=== PATIENT | female | born 1990 | race Caucasian/White ===

== ENCOUNTER 2017-08-12 09:07 | Emergency (ER) | payer MEDICAID ==
[~2017-08-12] VITALS: Ht 160 cm; Wt 89.8 kg
[~2017-08-12 09:07] MED LIST: FIORIC PO; PROT40TA PO; XANA0.5T PO; ZOFR8TAB4 SL
[2017-08-12 09:10] VITALS: BP 126/78; PULSE 108; RESP 16; TEMP 98.9; O2SAT 100
[2017-08-12] MEDS ORDERED: DESV25TA PO (09:23)
[2017-08-12] MEDS ORDERED: CYCL5TAB PO (09:23)
[2017-08-12] MEDS ORDERED: GABA100C4 PO (09:23)
[2017-08-12 09:35] LABS: BILIRUBIN, URINE NEG (NEG); BLOOD, URINE NEG (NEG); GLUCOSE,URINE NEG (NEG); KETONE, URINE NEG (NEG); NITRITE,URINE NEG (NEG); URINE LEUKOCYTE ESTERASE NEG (NEG)
[2017-08-12 09:40] LABS: RBC, URINE 0-3 /hpf (0-3); SQUAMOUS EPITHELIAL CELL URINE 0-5 /hpf (0-5); URINE COLOR YELLOW (YELLW/STRAW); WBC, URINE 0-2 /hpf (0-5)
[2017-08-12] MEDS ORDERED: KETOROLAC TROMETHAMINE 30 MG/ML (IVP) VIAL IVP ONE (09:45)
[2017-08-12] MEDS ORDERED: SODIUM CHLORIDE 0.9% FLUSH 10 ML FLUSH IV FLUSH PRN (09:45)
--- NOTE | 2017-08-12 09:59 | PD ---
HPI Chief Complaint: Back/ Neck Pain or Injury Time Seen by Provider: 09:36 Travel History International Travel<30 days: No Contact w/Intl Traveler<30days: No Traveled to known affect area: No History of Present Illness HPI 27-year-old female patient presents the emergency department with 2 week history of increasing back pain with radiation into the neck. Patient denies any specific injury. Patient denies shortness of breath. Patient denies pleuritic pain. Patient states pain is worse at night when trying to sleep. Patient currently on Flexeril and Neurontin 100 mg 3 times a day for endometriosis, as well as Pristiq for depression. Patient states she does smoke. Patient denies significant cough or wheezing. Patient denies any specific injury. Patient does relate that she is a single mother of a 9-year- old son with autism and Tourette's syndrome. She states that she has very little support other than her son's counselors. She states she does go to the doctor but has different doctors every time she has Medicaid. Patient states she is not suicidal or homicidal at this time. Patient admits to feeling overwhelmed with the holiday season at this time. Patient denies nausea, vomiting, or diarrhea but states she does have a gastric ulcer. Pain in the back is currently about an 8 out of 10. Patient also concerned about an osteosarcoma and the right femur. She states "I'm just afraid of something being wrong". She is allergic to doxycycline. PFSH Past Medical History Cancer: No Cardiovascular Problems: Yes (LOW BP) Diminished Hearing: No Endocrine: No Gastrointestinal Disorders: Yes (HX GERD) GERD: Yes Genitourinary: No Headaches: Yes Hepatitis: No Hiatal Hernia: No Hypertension: No Immune Disorder: No Medical other: No Musculoskeletal: Yes (RIGHT FEMUR OSTEOCONDROMA) Neurologic: No Psychiatric: No Respiratory: No Tetanus Vaccination: Unknown ?: Unknown : 1 Para: 1 Past Surgical History AICD: No Body Medical Devices: NONE Gynecologic Surgery: Yes (ENDOMETRIOSIS ABLASION) Joint Replacement: No Pacemaker: No Other Surgery: No Social History Alcohol Use: No Tobacco Use: Yes Substance Use: No Allergies-Medications (Allergen,Severity, Reaction): Coded Allergies: doxycycline (Unverified Allergy, Mild, Anaphylaxis, 08/12/17) Reported Meds & Prescriptions Reported Meds & Active Scripts Active Flexeril (Cyclobenzaprine HCl) 10 Mg Tab 10 Mg PO TID Meloxicam 15 Mg Tab 15 Mg PO DAILY Gabapentin 300 Mg Cap 300 Mg PO TID Reported Flexeril (Cyclobenzaprine HCl) 5 Mg Tab 5 Mg PO PRN Pristiq 24 HR (Desvenlafaxine ER 24 HR) 25 Mg Tab 25 Mg PO DAILY Gabapentin 100 Mg Cap 100 Mg PO TID Review of Systems Except as stated in HPI: all other systems reviewed are Neg General / Constitutional: No: Fever Eyes: No: Visual changes HENT: No: Headaches Cardiovascular: No: Chest Pain or Discomfort Respiratory: No: Cough, Shortness of Breath, Wheezing, Sneezing, Night Sweats, Pleuritic Pain Gastrointestinal: No: Nausea, Vomiting, Diarrhea, Abdominal Pain Genitourinary: No: Urgency, Frequency, Dysuria, Pelvic Pain, Flank Pain, Discharge, Vaginal Bleeding Musculoskeletal: Positive: Myalgias, Pain (see history of present illness), No : Arthralgias, Limited ROM Skin: No Rash Neurologic: No: Weakness Psychiatric: No: Depression Endocrine: No: Polydipsia Hematologic/Lymphatic: No: Easy Bruising Physical Exam Narrative GENERAL: Patient appears anxious, but otherwise in no acute distress. SKIN: Warm and dry. Normal color. Normal turgor. No rash. HEAD: Atraumatic. Normocephalic. EYES: Pupils equal and round. No scleral icterus. No injection or drainage. ENT: No nasal bleeding or discharge. Mucous membranes pink and moist. TMs are clear bilaterally. No sinus tenderness. Pharynx is normal. Airway is patent. NECK: Trachea midline. No bony tenderness or step-off. Range of motion is full and nontender. CARDIOVASCULAR: Regular rate and rhythm. RESPIRATORY: No accessory muscle use. Clear to auscultation. Breath sounds equal bilaterally. No recent producible pain with palpation of the thoracic spine or rib cage. GASTROINTESTINAL: Abdomen soft, non-tender, nondistended. Hepatic and splenic margins not palpable. MUSCULOSKELETAL: Extremities without clubbing, cyanosis, or edema. No obvious deformities. Straight leg raise pain is negative bilaterally. No significant findings noted. NEUROLOGICAL: Awake and alert. No obvious cranial nerve deficits. Motor grossly within normal limits. Five out of 5 muscle strength in the arms and legs. Normal speech. PSYCHIATRIC: Appropriate mood and affect; insight and judgment normal. Data Data Last Documented VS Vital Signs Date Time Temp Pulse Resp B/P (MAP) Pulse Ox O2 Delivery O2 Flow Rate FiO2 08/12/17 10:01 16 100 Room Air 08/12/17 09:10 98.9 108 126/78 (94) Orders Orders Urinalysis - C+S If Indicated (08/12/17 09:17) Ed Urine Pregnancytest Poc (08/12/17 09:17) Complete Blood Count With Diff (08/12/17 09:45) Comprehensive Metabolic Panel (08/12/17 09:45) Lipase (08/12/17 09:45) Iv Access Insert/Monitor (08/12/17 09:45) Ecg Monitoring (08/12/17 09:45) Oximetry (08/12/17 09:45) Sodium Chloride 0.9% Flush (Ns Flush) (08/12/17 09:45) Ketorolac Inj (Toradol Inj) (08/12/17 09:45) Chest, Single Ap (08/12/17 09:45) Labs Laboratory Tests Test 08/12/17 09:20 08/12/17 10:00 Urine Collection Type CLEAN CATCH Urine Color YELLOW Urine Turbidity CLEAR Urine pH 6.0 Urine Specific [place] 1.005 Urine Protein NEG mg/dL Urine Glucose (UA) NEG mg/dL Urine Ketones NEG mg/dL Urine Occult Blood NEG Urine Nitrite NEG Urine Bilirubin NEG Urine Leukocyte Esterase NEG Urine RBC 0-3 /hpf Urine WBC 0-2 /hpf Urine Squamous Epithelial Cells 0-5 /hpf Microscopic Urinalysis Comment CULT NOT INDICATED Urine Collection Time 09:20 White Blood Count 8.6 TH/MM3 Red Blood Count 4.98 MIL/MM3 Hemoglobin 11.9 GM/DL Hematocrit 39.4 % Mean Corpuscular Volume 79.2 FL Mean Corpuscular Hemoglobin 23.9 PG Mean Corpuscular Hemoglobin Concent 30.2 % Red Cell Distribution Width 15.5 % Platelet Count 342 TH/MM3 Mean Platelet Volume 8.4 FL Neutrophils (%) (Auto) 68.9 % Lymphocytes (%) (Auto) 21.7 % Monocytes (%) (Auto) 6.8 % Eosinophils (%) (Auto) 2.0 % Basophils (%) (Auto) 0.6 % Neutrophils # (Auto) 5.8 TH/MM3 Lymphocytes # (Auto) 1.9 TH/MM3 Monocytes # (Auto) 0.6 TH/MM3 Eosinophils # (Auto) 0.2 TH/MM3 Basophils # (Auto) 0.1 TH/MM3 CBC Comment DIFF FINAL Differential Comment Blood Urea Nitrogen 7 MG/DL Creatinine 0.60 MG/DL Random Glucose 91 MG/DL Total Protein 7.9 GM/DL Albumin 3.7 GM/DL Calcium Level 9.0 MG/DL Alkaline Phosphatase 103 U/L Aspartate Amino Transf (AST/SGOT) 23 U/L Alanine Aminotransferase (ALT/SGPT) 40 U/L Total Bilirubin 0.2 MG/DL Sodium Level 137 MEQ/L Potassium Level 4.0 MEQ/L Chloride Level 104 MEQ/L Carbon Dioxide Level 24.9 MEQ/L Anion Gap 8 MEQ/L Estimat Glomerular Filtration Rate 122 ML/MIN Lipase 181 U/L MDM Medical Decision Making Medical Screen Exam Complete: Yes Emergency Medical Condition: Yes Differential Diagnosis Subjective muscle pain. Life stressors. Anxiety. Depression. Narrative Course Patient is felt to be medically stable at time of exam. Urine test is negative. Urinalysis is unremarkable. Labs ordered including CBC, CMP, and lipase. Chest x-ray is ordered. IV is started and the patient is given 30 mg Toradol IV. CBC and CMP are both unremarkable. Lipase is normal. Chest x-ray shows no acute abnormality per radiologist. Patient is felt to be medically stable for discharge home. Patient symptoms are felt to be more stress-related than from a physical ailment. Patient is to increase her Neurontin to 300 mg 3 times a day. She is given a prescription for #90. Patient also to use meloxicam 15 mg daily. Patient can use Flexeril 10 mg up to 3 times a day. Recommend close follow-up with local primary care physician and/or mental health counselor. Patient to return if symptoms do not improve or worsen as needed. Diagnosis Primary Impression: Muscle spasm of back Additional Impression: Stress reaction Referrals: [facility] Patient Instructions: Anxiety (ED), General Instructions, Muscle Spasm (ED) Additional Instructions: CBC and CMP are both unremarkable. Lipase is normal. Chest x-ray shows no acute abnormality per radiologist. Patient is felt to be medically stable for discharge home. Patient symptoms are felt to be more stress-related than from a physical ailment. Patient is to increase her Neurontin to 300 mg 3 times a day. She is given a prescription for #90. Patient also to use meloxicam 15 mg daily. Patient can use Flexeril 10 mg up to 3 times a day. Recommend close follow-up with local primary care physician and/or mental health counselor. Patient to return if symptoms do not improve or worsen as needed. Med/Other Pt SpecificInfo: Prescription(s) given Scripts Cyclobenzaprine (Flexeril) 10 Mg Tab 10 MG PO TID for Muscle Spasm, #30 TAB 0 Refills Prov: Roro Cagle MD 08/12/17 Meloxicam (Meloxicam) 15 Mg Tab 15 MG PO DAILY for Arthritis Pain, #30 TAB 0 Refills Prov: Roro Cagle MD 08/12/17 Gabapentin (Gabapentin) 300 Mg Cap 300 MG PO TID, #90 CAP 0 Refills Prov: Roro Cagle MD 08/12/17 Disposition: 01 DISCHARGE HOME Condition: Stable French Maxwell Aug 12, 2017 09:59
[2017-08-12 10:01] VITALS: RESP 16; O2SAT 100
[2017-08-12 10:12] LABS: CHLORIDE 104 MEQ/L (98-107); SODIUM (NA) 137 MEQ/L (136-145)
[2017-08-12 10:14] LABS: AUTOMATED NEUTROPHIL # 5.8 TH/MM3 (1.8-7.7); BASOPHIL # 0.1 TH/MM3 (0-0.2); BASOPHIL % 0.6 % (0.0-2.0); EOSINOPHIL # 0.2 TH/MM3 (0-0.4); HEMATOCRIT 39.4 % (35.0-46.0); HEMOGLOBIN 11.9 GM/DL (11.6-15.3); LYMPH % 21.7 % (9.0-44.0); LYMPHOCYTE # 1.9 TH/MM3 (1.0-4.8); MEAN CELL VOLUME 79.2 FL (80.0-100.0); MEAN CORPUSCULAR HEMOGLOBIN 23.9 PG (27.0-34.0); MEAN CORPUSCULAR HGB CONC 30.2 % (32.0-36.0); MEAN PLATELET VOLUME 8.4 FL (7.0-11.0); MONO % 6.8 % (0.0-8.0); MONOCYTE # 0.6 TH/MM3 (0-0.9); NEUT % 68.9 % (16.0-70.0); PLATELET COUNT 342 TH/MM3 (150-450); RED BLOOD COUNT 4.98 MIL/MM3 (4.00-5.30); RED CELL DISTRIBUTION WIDTH 15.5 % (11.6-17.2); WHITE BLOOD COUNT 8.6 TH/MM3 (4.0-11.0)
[2017-08-12 10:16] LABS: ALBUMIN 3.7 GM/DL (3.4-5.0); BICARBONATE 24.9 MEQ/L (21.0-32.0); BLOOD UREA NITROGEN 7 MG/DL (7-18); GLUCOSE,RANDOM 91 MG/DL (74-106); LIPASE 181 U/L (73-393)
[2017-08-12 10:19] LABS: ALT (GPT) 40 U/L (10-53); AST (GOT) 23 U/L (15-37); GLOMERULAR FILTRATION RATE 122 ML/MIN (>89)
[2017-08-12 10:20] LABS: TOTAL BILIRUBIN ADULT 0.2 MG/DL (0.2-1.0); TOTAL PROTEIN 7.9 GM/DL (6.4-8.2)
[2017-08-12 10:22] LABS: ALKALINE PHOSPHATASE 103 U/L (45-117)
[2017-08-12] MEDS ORDERED: MELO15TA20 PO (10:35)
[2017-08-12] MEDS ORDERED: CYCL10TA PO (10:35)
[2017-08-12] MEDS ORDERED: GABA300C5 PO (10:35)
--- NOTE | 2017-08-12 10:52 | RADRPT ---
EXAM DATE/TIME: 08/12/2017 10:12 [facility] COMPARISON: No previous studies available for comparison. INDICATIONS : Chest/ upper back pain. MEDICAL HISTORY : Gastroesophageal reflux disease. Low blood pressure. Endometriosis. Right femur osteochondroma. SURGICAL HISTORY : Endometriosis abaltion. ENCOUNTER: Initial ACUITY: 2 weeks PAIN SCORE: 3/10 LOCATION: chest FINDINGS: A single view of the chest demonstrates the lungs to be symmetrically aerated without evidence of mas s, infiltrate or effusion. The cardiomediastinal contours are unremarkable. Osseous structures are intact. CONCLUSION: Normal examination. Santos Arellano MD on August 12, 2017 at 10:50 Board Certified Radiologist. This report was verified electronically.
== END 2017-08-12 11:11 | disposition home or self-care (01) ==
LOC: PHED 09:07
DX: M62.830 Muscle spasm of back (principal); F43.9 Reaction to severe stress, unspecified; F32.9 Major depressive disorder, single episode, unspecified; K21.9 Gastro-esophageal reflux disease without esophagitis; D16.21 Benign neoplasm of long bones of right lower limb; N80.9 Endometriosis, unspecified
CPT/HCPCS: 71010; 80053; 81001; 83690; 84703; 85025; 96374; 99284; J1885

== ENCOUNTER 2017-09-21 13:20 | Emergency (ER) | payer MEDICAID ==
[~2017-09-21] VITALS: Ht 160 cm; Wt 87.0 kg
[~2017-09-21 13:20] MED LIST changes: +CYCL10TA PO; +CYCL5TAB PO; +DESV25TA PO; -FIORIC PO; +GABA100C4 PO; +GABA300C5 PO; +MELO15TA20 PO; -PROT40TA PO; -XANA0.5T PO; -ZOFR8TAB4 SL
[2017-09-21 13:23] VITALS: BP 132/89; PULSE 107; RESP 20; TEMP 97.9; O2SAT 97
[2017-09-21] MEDS ORDERED: SODIUM CHLOR 0.9% 1000 ML INJ 1,000 ML IV ONE (16:34)
--- NOTE | 2017-09-21 16:43 | PD ---
HPI Chief Complaint: Related Problem Time Seen by Provider: 16:26 Travel History International Travel<30 days: No Contact w/Intl Traveler<30days: No Traveled to known affect area: No History of Present Illness HPI 27-year-old female presents to the emergency department for evaluation after she states she was diagnosed with a miscarriage on Friday at [facility] in [facility]. She states that she had lab work and ultrasound completed. She states at that time, she was running a fever. She has not had a fever since and is afebrile at this time. She states she feels like something is not right. She reports lower abdominal cramping. She also states she has a migraine headache as well. Patient is a G2, P1. Patient states she was prescribed Augmentin by [facility]. She has a history of migraine headaches. She had a CT scan of the head done in 2014 which was unremarkable. She states the pain is over her left frontal and maxillary sinus and is 5/10. She denies any abnormal vaginal discharge, risk of STDs. No exacerbating or alleviating factors. Moderate severity. PFSH Past Medical History Cancer: No Cardiovascular Problems: Yes (LOW BP) Diminished Hearing: No Endocrine: No Gastrointestinal Disorders: Yes (HX GERD) GERD: Yes Genitourinary: No Headaches: Yes Hepatitis: No Hiatal Hernia: No Hypertension: No Immune Disorder: No Musculoskeletal: Yes (RIGHT FEMUR OSTEOCONDROMA) Neurologic: No Psychiatric: No Respiratory: No ?: LMP: 07/2017 : 1 Para: 1 Past Surgical History AICD: No Body Medical Devices: NONE Gynecologic Surgery: Yes (ENDOMETRIOSIS ABLASION) Joint Replacement: No Pacemaker: No Other Surgery: No Social History Alcohol Use: No Tobacco Use: Yes Substance Use: No Allergies-Medications (Allergen,Severity, Reaction): Coded Allergies: sulfamethoxazole (Verified Allergy, Severe, Anaphylaxis, 09/21/17) trimethoprim (Verified Allergy, Severe, Anaphylaxis, 09/21/17) doxycycline (Unverified Allergy, Mild, Anaphylaxis, 09/21/17) tramadol (Verified Allergy, Unknown, UNKNOWN , 09/21/17) Reported Meds & Prescriptions Reported Meds & Active Scripts Active Gabapentin 300 Mg Cap 300 Mg PO TID Reported Pristiq 24 HR (Desvenlafaxine ER 24 HR) 25 Mg Tab 25 Mg PO DAILY Review of Systems Except as stated in HPI: all other systems reviewed are Neg Physical Exam Narrative GENERAL: Well-nourished, well-developed female patient, ambulatory. Afebrile. SKIN: Focused skin assessment warm/dry. HEAD: Normocephalic. Atraumatic. Patient has tenderness over left frontal maxillary sinus. EYES: No scleral icterus. No injection or drainage. NECK: Supple, trachea midline. No JVD or lymphadenopathy. CARDIOVASCULAR: Regular rate and rhythm without murmurs, gallops, or rubs. RESPIRATORY: Breath sounds equal bilaterally. No accessory muscle use. Lungs sounds are clear to auscultation. GASTROINTESTINAL: Abdomen soft and nondistended. She has lower pelvic tenderness to palpation. MUSCULOSKELETAL: No cyanosis, or edema. BACK: Nontender without obvious deformity. No CVA tenderness. Data Data Last Documented VS Vital Signs Date Time Temp Pulse Resp B/P (MAP) Pulse Ox O2 Delivery O2 Flow Rate FiO2 09/21/17 13:23 97.9 107 20 132/89 (103) 97 Orders Orders Beta Hcg (Quant/Titer) (09/21/17 16:34) Complete Blood Count With Diff (09/21/17 16:34) Comprehensive Metabolic Panel (09/21/17 16:34) Complete Rh (09/21/17 16:34) Us Pelvis (Ques Preg/Ectopic) (09/21/17 ) Urinalysis - C+S If Indicated (09/21/17 16:34) Iv Access Insert/Monitor (09/21/17 16:34) Sodium Chlor 0.9% 1000 Ml Inj (Ns 1000 M (09/21/17 16:34) Ed Urine Pregnancytest Poc (09/21/17 16:34) Influenzae A/B Antigen (09/21/17 16:34) Prochlorperazine Inj (Compazine Inj) (09/21/17 18:30) Diphenhydramine Inj (Benadryl Inj) (09/21/17 18:30) Ketorolac Inj (Toradol Inj) (09/21/17 18:30) Labs Laboratory Tests Test 09/21/17 16:55 09/21/17 17:00 White Blood Count 8.4 TH/MM3 Red Blood Count 4.78 MIL/MM3 Hemoglobin 12.2 GM/DL Hematocrit 37.5 % Mean Corpuscular Volume 78.5 FL Mean Corpuscular Hemoglobin 25.6 PG Mean Corpuscular Hemoglobin Concent 32.6 % Red Cell Distribution Width 16.1 % Platelet Count 328 TH/MM3 Mean Platelet Volume 7.9 FL Neutrophils (%) (Auto) 64.4 % Lymphocytes (%) (Auto) 28.1 % Monocytes (%) (Auto) 5.8 % Eosinophils (%) (Auto) 1.3 % Basophils (%) (Auto) 0.4 % Neutrophils # (Auto) 5.4 TH/MM3 Lymphocytes # (Auto) 2.4 TH/MM3 Monocytes # (Auto) 0.5 TH/MM3 Eosinophils # (Auto) 0.1 TH/MM3 Basophils # (Auto) 0.0 TH/MM3 CBC Comment DIFF FINAL Differential Comment Blood Urea Nitrogen 5 MG/DL Creatinine 0.69 MG/DL Random Glucose 82 MG/DL Total Protein 8.1 GM/DL Albumin 4.1 GM/DL Calcium Level 9.2 MG/DL Alkaline Phosphatase 105 U/L Aspartate Amino Transf (AST/SGOT) 24 U/L Alanine Aminotransferase (ALT/SGPT) 34 U/L Total Bilirubin 0.2 MG/DL Sodium Level 139 MEQ/L Potassium Level 3.5 MEQ/L Chloride Level 104 MEQ/L Carbon Dioxide Level 27.5 MEQ/L Anion Gap 8 MEQ/L Estimat Glomerular Filtration Rate 104 ML/MIN Human Chorionic Gonadotropin, Quant LESS THAN 1 MIU/ML Urine Color YELLOW Urine Turbidity CLEAR Urine pH 6.0 Urine Specific [place] 1.010 Urine Protein NEG mg/dL Urine Glucose (UA) NEG mg/dL Urine Ketones NEG mg/dL Urine Occult Blood MOD Urine Nitrite NEG Urine Bilirubin NEG Urine Urobilinogen LESS THAN 2.0 MG/DL Urine Leukocyte Esterase NEG Urine RBC 29 /hpf Urine WBC 2 /hpf Urine Squamous Epithelial Cells <1 /hpf Urine Bacteria RARE /hpf Urine Mucus FEW /lpf Microscopic Urinalysis Comment CULT NOT INDICATED MDM Medical Decision Making Medical Screen Exam Complete: Yes Emergency Medical Condition: Yes Medical Record Reviewed: Yes Interpretation(s) Last Impressions Pelvis Ultrasound 09/21/17 0000 Signed Impressions: Service Date/Time: Thursday, September 21, 2017 17:14 - CONCLUSION: Normal pelvic ultrasound for patient this age. No intrauterine or ectopic demonstrated. Francis Corey MD Differential Diagnosis Threatened versus spontaneous versus UTI versus influenza Narrative Course 27-year-old female presents to the emergency department for evaluation of miscarriage. She was seen at [facility] on Friday. I will attempt to obtain these records. IV access established. CBC, CMP, beta hCG, complete Rh, UA, ED urine test, and influenza are ordered and pending. Ultrasound is ordered and pending. Patient is given normal saline 1 L IV bolus. CBC shows no acute abnormality. CMP is unremarkable. Beta HCG is less than 1. Blood type is O+. UA is negative for acute infection. UPT is negative. Influenza was refused by patient. US is normal. Patient is given Compazine 10 mg IV, Benadryl 25 mg IV, Toradol 30 mg IV for headache. She is stable for discharge home. She is to continue the Augmentin prescribed to her by the other hospital. She is to return for any acute worsening of symptoms. She verbalizes agreement and understanding. The patient was discharged in stable condition with instructions, including return instructions and follow up instructions. Diagnosis Primary Impression: Dysmenorrhea Referrals: [facility] call for appointment Patient Instructions: Dysmenorrhea (ED), General Instructions Additional Instructions: Follow up with medical staff coordinator. Return to the emergency department for any acute, worsening of symptoms. Med/Other Pt SpecificInfo: No Change to Meds Disposition: 01 DISCHARGE HOME Condition: Stable Alma Azevedo NORA Sep 21, 2017 16:43
[2017-09-21 17:22] LABS: AUTOMATED NEUTROPHIL # 5.4 TH/MM3 (1.8-7.7); BASOPHIL % 0.4 % (0.0-2.0); EOSINOPHIL # 0.1 TH/MM3 (0-0.4); EOSINOPHIL % 1.3 % (0.0-4.0); HEMATOCRIT 37.5 % (35.0-46.0); HEMOGLOBIN 12.2 GM/DL (11.6-15.3); LYMPH % 28.1 % (9.0-44.0); LYMPHOCYTE # 2.4 TH/MM3 (1.0-4.8); MEAN CELL VOLUME 78.5 FL (80.0-100.0); MEAN CORPUSCULAR HEMOGLOBIN 25.6 PG (27.0-34.0); MEAN CORPUSCULAR HGB CONC 32.6 % (32.0-36.0); MEAN PLATELET VOLUME 7.9 FL (7.0-11.0); MONO % 5.8 % (0.0-8.0); MONOCYTE # 0.5 TH/MM3 (0-0.9); NEUT % 64.4 % (16.0-70.0); PLATELET COUNT 328 TH/MM3 (150-450); RED BLOOD COUNT 4.78 MIL/MM3 (4.00-5.30); RED CELL DISTRIBUTION WIDTH 16.1 % (11.6-17.2); WHITE BLOOD COUNT 8.4 TH/MM3 (4.0-11.0)
[2017-09-21 17:27] LABS: BACTERIA, URINE RARE /hpf; BILIRUBIN, URINE NEG (NEG); BLOOD, URINE MOD (NEG); GLUCOSE,URINE NEG (NEG); KETONE, URINE NEG (NEG); MUCUS URINE FEW /lpf (OCC); NITRITE,URINE NEG (NEG); SQUAMOUS EPITHELIAL CELL URINE <1 /hpf (0-5); URINE COLOR YELLOW (YELLW/STRAW); URINE LEUKOCYTE ESTERASE NEG (NEG)
[2017-09-21 17:40] LABS: ALBUMIN 4.1 GM/DL (3.4-5.0); AST (GOT) 24 U/L (15-37); BICARBONATE 27.5 MEQ/L (21.0-32.0); BLOOD UREA NITROGEN 5 MG/DL (7-18); CALCIUM 9.2 MG/DL (8.5-10.1); CHLORIDE 104 MEQ/L (98-107); CREATININE 0.69 MG/DL (0.50-1.00); GLOMERULAR FILTRATION RATE 104 ML/MIN (>89); GLUCOSE,RANDOM 82 MG/DL (74-106); SODIUM (NA) 139 MEQ/L (136-145)
[2017-09-21 17:45] LABS: ALKALINE PHOSPHATASE 105 U/L (45-117); ALT (GPT) 34 U/L (10-53); TOTAL BILIRUBIN ADULT 0.2 MG/DL (0.2-1.0); TOTAL PROTEIN 8.1 GM/DL (6.4-8.2)
--- NOTE | 2017-09-21 18:17 | RADRPT ---
EXAM DATE/TIME: 09/21/2017 17:14 [facility] COMPARISON: No previous studies available for comparison. INDICATIONS : Pelvic pain. LAB(S): Beta-hCG: Less than 1 MEDICAL HISTORY : Gastroesophageal reflux disease. Low blood pressure. Endometriosis. Right femur ostocondroma. SURGICAL HISTORY : Uterine ablation. ENCOUNTER: Initial ACUITY: 1 week PAIN SCORE: 6/10 LOCATION: Bilateral pelvis MEASUREMENTS: UTERUS: 7.6 x 6.4 x 4.5 cm ENDOMETRIAL STRIPE: 4 mm RIGHT OVARY: 2.7 x 1.9 x 1.9 cm LEFT OVARY: 2.7 x 1.9 x 1.8 cm FREE FLUID: No FINDINGS: UTERUS: The myometrium has homogeneous echotexture without mass.Subcentimeter nabothian cyst of the lower samish rine segment. RIGHT OVARY: Ovary contains no mass or significant cystic lesion.Blood flow demonstrated. LEFT OVARY: Ovary contains no mass or significant cystic lesion.Blood flow demonstrated. MISCELLANEOUS: No free fluid. CONCLUSION: Normal pelvic ultrasound for patient this age. No intrauterine or ectopic demonstrated. Francis Corey MD on September 21, 2017 at 18:13 Board Certified Radiologist. This report was verified electronically.
[2017-09-21] MEDS ORDERED: KETOROLAC TROMETHAMINE 30 MG/ML (IVP) VIAL IV PUSH ONE (18:30)
[2017-09-21] MEDS ORDERED: PROCHLORPERAZINE INJ 10 MG/2 ML VIAL IV PUSH ONE (18:30)
[2017-09-21] MEDS ORDERED: diphenhydrAMINE HCL 50 MG/ML VIAL IV PUSH ONE (18:30)
[2017-09-21 18:43] VITALS: BP 129/80; PULSE 95; RESP 20; O2SAT 100
== END 2017-09-21 18:56 | disposition home or self-care (01) ==
LOC: NEPD 13:20
DX: N94.6 Dysmenorrhea, unspecified (principal); Z72.0 Tobacco use
CPT/HCPCS: 76700; 80053; 81001; 84702; 84703; 85025; 86901; 96361; 96374; 96375; 99285; J0780; J1200; J1885; J7030